=== PATIENT | male | born 1995 | race Caucasian/White ===

== ENCOUNTER 2020-06-03 09:56 | Inpatient (IN) | payer OTHER, SELFPAY ==
[2020-06-03] VITALS (19 sets, daily range): BP systolic 102–122; BP diastolic 59–79; PULSE 80–99; RESP 13–23; TEMP 36.2–37.1; O2SAT 97–100; BMI 18.4; BMI 18.6
--- NOTE | 2020-06-03 10:12 | EKG12_ITS ---
Test Reason : SOB Blood Pressure : / mmHG Vent. Rate : 095 BPM Atrial Rate : 095 BPM P-R Int : 162 ms QRS Dur : 092 ms QT Int : 366 ms P-R-T Axes : 078 075 050 degrees QTc Int : 459 ms Normal sinus rhythm Possible Left atrial enlargement Borderline ECG Confirmed by JELANI PAUL, TAMARA ([id number]), web content editor NICHOLE BECK ([id number]) on 06/05/2020 11:20:07 AM Referred By: ANASTASIA Confirmed By:TAMARA PALOMARES MD
--- NOTE | 2020-06-03 10:16 | ED.DCSUM_ITS ---
History of Present Illness Chief Complaint: Nausea/Vomiting Informant: Patient Onset: Yesterday Current Severity: Moderate Maximum Severity: Moderate Narrative: Patient presents secondary to nausea and vomiting with possible new onset diabetes. He has noted weight loss over the past 3 weeks. He developed nausea and vomiting yesterday. Patient was seen at the family doctor's office. Apparently blood work revealed a blood sugar of 400. He was not started on any medication pending some further blood tests. Patient presents today via EMS. Blood sugars today reportedly are in the 200s. Past Medical History - Allergies and Home Meds Allergies/Adverse Reactions: Allergies No Known Allergies Allergy (Verified 06/03/20 10:01) Past Medical History: None Lives: With Family Smoking Status: Never smoker Review of Systems General: Denies: Chills, Fever Eyes: Denies: Visual changes - bilaterally ENT: Denies: Bilateral ear pain Cardiovascular: Denies: Chest pain, Palpitations Respiratory: Denies: Dyspnea, Cough Gastrointestinal: Reports: Nausea, Vomiting. Denies: Abdominal pain, Diarrhea Genitourinary: Denies: Dysuria Musculoskeletal: Denies: Swelling, Extremity Pain Skin: Denies: Rash Hematologic: Denies: Easy bruising, Easy bleeding Allergy: Denies: Uticaria Physical Exam Vital Signs/Narrative: Vital Signs Temp Pulse Resp BP Pulse Ox 06/03/20 09:58 98 F 99 18 122/79 H 100 Inital Vital Signs reviewed: Yes General: Well nourished, Well developed Head: Normocephalic ENT: Dry mucous membranes Neck: Supple Cardiovascular: Tachycardia Respiratory: No distress, CTA bilaterally Abdomen: Soft, Nontender, Hypoactive bowel sounds Skin: Normal color Neurological: Alert, Oriented x3 Psychological: Normal affect Diagnostic/Tx/Re-eval Laboratory Results 06/03/20 06/03/20 06/03/20 10:40 10:40 11:20 WBC 11.6 H RBC 5.83 Hgb 17.8 H Hct 51.8 MCV 88.9 MCH 30.5 MCHC 34.4 RDW Std Deviation 35.8 RDW Coeff of Myah 11.3 L Plt Count 270 MPV 11.5 Immature Gran % (Auto) 0.600 Neut % (Auto) 86.3 H Lymph % (Auto) 4.9 L [place] % (Auto) 7.7 Eos % (Auto) 0.0 Baso % (Auto) 0.5 Absolute Neuts (auto) 10.0 H Absolute Lymphs (auto) 0.57 L Nucleated RBC % 0 Differential Comment SCANNED Sodium 128 L Potassium 4.6 Chloride 95 L Carbon Dioxide 7.0 L* Anion Gap 26 H BUN 18 Creatinine 1.63 H Estim Creat Clear Calc 61.50 Est GFR (MDRD) Af Amer 67 Est GFR (MDRD) Non-Af 56 L BUN/Creatinine Ratio 11.0 Glucose 360 H Calcium 8.1 L Magnesium 1.8 Total Bilirubin 0.60 Direct Bilirubin 0.15 AST 17 ALT 37 Alkaline Phosphatase 87 Total Protein 8.7 H Albumin 4.5 Globulin 4.2 Urine Color Yellow Urine Clarity Clear Urine pH 5.0 Ur Specific [place] 1.025 Urine Protein 100 H Urine Glucose (UA) 1000 H Urine Ketones 150 H Urine Occult Blood 50 H Urine Nitrite Negative Urine Bilirubin Negative Urine Urobilinogen Normal Ur Leukocyte Esterase Negative Urine RBC 0 SEEN Urine WBC 0 SEEN Ur Squamous Epith Cells 0 SEEN Urine Bacteria 0 SEEN Urine Mucus 0 SEEN - EKG Initial EKG Interpretation: Sinus Rhythm - Sinus at 95. QTc was 459. - Medical Decision Making Patient was given 2 L of IV fluid along with Reglan for nausea. Blood work does indicate acidosis with a bicarb of 7. Blood sugar is 360. Patient be started on normal saline at 500 cc/h along with an insulin drip. He will be admitted to ICU for DKA. ED Disposition - Plan for ED Patient: Disposition: Acute Care Hospital [facility] Diagnosis: DKA (diabetic ketoacidoses)
--- NOTE | 2020-06-03 10:16 | NURSING ---
NO OLD EKGS
[2020-06-03] MEDS: 0.9% Normal Saline 1,000 ML 1000 ML IV ×2 (10:33→11:14)
[2020-06-03] MEDS: Metoclopramide 10 MG/2 ML Vial 5 MG IV (10:33)
[2020-06-03 10:54] LABS: Absolute Lymphocyte Count 0.57 X10^3/uL (0.83-4.51); Basophil# 0.06 X10^3/uL; Basophil% 0.5 % (0-1); Hematocrit 51.8 % (40-54); Hemoglobin 17.8 g/dL (13.0-16.5); Lymphocyte # 0.57 X10^3/ul (4.0); Lymphocyte % 4.9 % (19-41); Mean Corp Hgb Conc 34.4 g/dL (32-36); Mean Corpuscular Hgb 30.5 pg (27.0-32.0); Mean Corpuscular Volume 88.9 fL (80-94); Mean Platelet Vol. 11.5 fl (6.2-12.0); Monocyte# 0.89 X10^3/uL; Monocyte% 7.7 % (0-10); NRBC Flagged by Analyzer 0 % (0-5); Neutrophil # 9.97 X10^3/uL (2.7-7.7); Neutrophil % 86.3 % (47-70); POSITIVE DIFFERENTIAL YES; Platelet Count 270 K/mm3 (150-450); RBC Distribution Width CV 11.3 % (11.6-14.6); RBC Distribution Width SD 35.8 fl (35.1-43.9); Red Blood Count 5.83 M/mm3 (4.6-6.2); White Blood Count 11.6 K/mm3 (4.4-11.0)
[2020-06-03 11:15] LABS: AST(SGOT) 17 U/L (15-37); Alanine Aminotransfer ALT/SGPT 37 U/L (16-61); Albumin, Serum 4.5 g/dL (3.2-5.0); Alkaline Phosphatase 87 U/L (45-117); Anion Gap 26 (5-15); BUN 18 mg/dL (7-18); Bilirubin, Direct 0.15 mg/dL (0.00-0.30); Calcium,Total 8.1 mg/dL (8.5-10.1); Chloride 95 mmol/L (98-107); Creatinine, Serum 1.63 mg/dL (0.70-1.30); EST Glomerular Filtration Rate 56 mL/min (>60); Est Glom Filt Rate - Afr Amer 67 mL/min (>60); Globulin 4.2 g/dL (2.2-4.2); Glucose 360 mg/dL (74-106); Magnesium 1.8 mg/dL (1.6-2.6); Potassium 4.6 mmol/L (3.5-5.1); Protein, Total 8.7 g/dL (6.4-8.2); Sodium Level 128 mmol/L (136-145)
[2020-06-03 11:17] LABS: Differential Indicated SCAN CRITERIA MET
[2020-06-03 11:22] LABS: Differential Comment SCANNED
[2020-06-03 11:25] LABS: Bacteria 0 SEEN /hpf (None Seen); Mucous, Urine 0 SEEN /hpf (<or=2+); Red Blood Cells-Urine 0 SEEN /hpf (0-5); Squamous Epithelial Cells - UA 0 SEEN /hpf (0-5); White Blood Cells 0 SEEN /hpf (0-5)
[2020-06-03 11:26] LABS: Color, Urine Yellow (Yellow); Glucose, Dipstick 1000 mg/dl (Normal); Leukocyte Esterase-Dipstick Negative /ul (Negative); Nitrite-Dipstick Negative (Negative); Occult Blood-Urine 50 /ul (Negative); Protein-Dipstick 100 mg/dl (Negative); Specific Gravity, Urine 1.025 (1.002-1.030); Urine Bilirubin Dipstick Negative (Negative); Urine Clarity Clear (Clear); Urine Urobilinogen Normal (Normal)
[2020-06-03 11:28] LABS: Ketone-Dipstick 150 mg/dl (Negative)
[2020-06-03] MEDS: 0.9% Normal Saline 1,000 ML 500 ML IV (12:05)
--- NOTE | 2020-06-03 12:20 | HP.PCM_ITS ---
Problem List (1) ZAYRA (acute kidney injury) Status: Acute (2) Hypomagnesemia Status: Acute (3) DKA (diabetic ketoacidoses) Status: Acute Qualifiers: Diabetes mellitus type: other specified (including JOEL) Diabetes mellitus complication detail: without coma Qualified Code(s): E13.10 - Other specified diabetes mellitus with ketoacidosis without coma History of Present Illness Date of Admission: 06/03/20 Chief Complaint: Weight loss, polydipsia,fatigue The patient is a 24 year old M no significant past medical history except for Lyme disease, on natural medications seen with a 1-1/2 weeks history of weight loss, fatigue, polydipsia and polyuria. Patient stated that he has lost about 15 pounds over the past 1 and half weeks. He has also been very thirsty. He went to see his primary care doctor yesterday and his blood sugar was 400. He was sent to do blood work. Was called to come to the emergency department. He denied any fever or chills or recent illness. No known past medical history. Vitals are stable. WBC count 11.6, hemoglobin 17.8,\272, sodium was 128, potass ium 4.6, chloride 95, bicarbonate 7, anion gap was 26, BUN was 18, creatinine was 1.6 today, HbA1c is 11.0, magnesium is 1.8, LFTs are unremarkable, UA shows glucose 1000, moderate acetone. Blood sugars with 360 Past Medical History Allergies No Known Allergies Allergy (Verified 06/03/20 10:01) Home Medications: Ambulatory Orders Medication Instructions Recorded NK 06/03/20 Surgical History: appendectomy Psychiatric History: No pertinent psych hx Lives: With Family Smoking Status: Never smoker Tobacco Use: Non-smoker Alcohol: None Drugs: None - *Family History Maternal History Items: No pertinent history Paternal History Items: Cancer - throat Review of Systems Comment: Constitutional: Reports: Malaise, Weakness, Fatigue, chills, weight loss Denies: Anorexia,Fever, Night Sweats. Eyes: Denies: Blurred vision, Cataracts, Conjunctivae Inflammation, Pain, Redness, Vision Change. HEENT: Denies: Difficulty Hearing, Difficulty Swallowing, Head Aches, Hearing Changes, Sinus Congestion, Sinus Drainage. Cardiovascular: Denies: Chest Pain, Orthopnea, Palpitations. Respiratory: Denies: Cough, Shortness of breath at rest, Sputum production. Gastrointestinal: Admits to nausea, Denies: Abdominal PainVomiting. Genitourinary: Admits to polyuria, Denies: Dysuria. Musculoskeletal: Denies: Joint Pain, Joint stiffness, Joint swelling, Joint Tenderness. Skin: Denies: Rash, Wounds. Neurological: Denies: Numbness, Tingling, Focal weakness VTE Information - Inpt Only VTE Present on Admission: No VTE Pharm Prophylaxis ordered?: Yes Patient Problems: Active and Suspected Problems DKA (diabetic ketoacidoses) (Acute) ZAYRA (acute kidney injury) (Acute) Hypomagnesemia (Acute) Objective: Physical exam: General: Alert, Oriented x3, Cooperative, No apparent distress, Well developed HEENT: Atraumatic Oral: Dry Mucosa Neck: Supple Lungs: Clear to auscultation Cardiovascular: HS I+II, regular, no murmurs Abdomen: Bowel Sounds Present, Soft, Non Tender Extremities: No edema Skin: No rashes, No breakdown Neurological: Grossly intact Psych/Mental Status: Appropriate - Physical Exam Vitals/I&O's: Vital Signs Temp Pulse Resp BP Pulse Ox 98 F 99 19 H 117/63 100 06/03/20 09:58 06/03/20 12:19 06/03/20 12:19 06/03/20 12:19 06/03/20 12:19 Oxygen Delivery Method Room Air Weight: 61.689 kg Body Mass Index (BMI) 18.4 Intake and Output for Last 24 Hours 06/01/20 06/02/20 06/03/20 23:59 23:59 23:59 Intake Total 1999 Balance 1999 Laboratory Results 06/03/20 10:40: WBC 11.6 H, RBC 5.83, Hgb 17.8 H, Hct 51.8, MCV 88.9, MCH 30.5, MCHC 34.4, RDW Std Deviation 35.8, RDW Coeff of Myah 11.3 L, Plt Count 270, MPV 11.5, Immature Gran % (Auto) 0.600, Neut % (Auto) 86.3 H, Lymph % (Auto) 4.9 L, [place] % (Auto) 7.7, Eos % (Auto) 0.0, Baso % (Auto) 0.5, Absolute Neuts (auto) 10.0 H, Absolute Lymphs (auto) 0.57 L, Nucleated RBC % 0, Differential Comment SCANNED 06/03/20 10:40: Sodium 128 L, Potassium 4.6, Chloride 95 L, Carbon Dioxide 7.0 L*, Anion Gap 26 H, BUN 18, Creatinine 1.63 H, Estim Creat Clear Calc 61.50, Est GFR (MDRD) Af Amer 67, Est GFR (MDRD) Non-Af 56 L, BUN/Creatinine Ratio 11.0, Glucose 360 H, Calcium 8.1 L, Magnesium 1.8, Total Bilirubin 0.60, Direct Bilirubin 0.15, AST 17, ALT 37, Alkaline Phosphatase 87, Total Protein 8.7 H, Albumin 4.5, Globulin 4.2 06/03/20 10:40: Hemoglobin A1c 11.0 H 06/03/20 10:40: Acetone Level MODERATE H 06/03/20 11:20: Urine Color Yellow, Urine Clarity Clear, Urine pH 5.0, Ur Specific [place] 1.025, Urine Protein 100 H, Urine Glucose (UA) 1000 H, Urine Ketones 150 H, Urine Occult Blood 50 H, Urine Nitrite Negative, Urine Bilirubin Negative, Urine Urobilinogen Normal, Ur Leukocyte Esterase Negative, Urine RBC 0 SEEN, Urine WBC 0 SEEN, Ur Squamous Epith Cells 0 SEEN, Urine Bacteria 0 SEEN, Urine Mucus 0 SEEN Current Medications Sodium Chloride () 1,000 mls @ 500 mls/hr IV .Q2H [facility] Stop: 06/03/20 13:44 Last Admin: 06/03/20 12:05 Dose: 500 mls/hr Documented by: Insulin Human Lispro 100 unit/ (Sodium Chloride) 100 mls @ 6.169 mls/hr CONT INF .[id number] [facility]; Protocol Last Admin: 06/03/20 12:14 Dose: 6.2 mls/hr, 6.2 mls/hr Documented by: Assessment/Plan All Active Problems DKA (diabetic ketoacidoses) (Acute) ZAYRA (acute kidney injury) (Acute) Hypomagnesemia (Acute) 1. Acute DKA, in a newly diagnosed diabetic HbA1c 11.0, patient is in acute DKA with severe metabolic acidosis Started on insulin drip, continue same, continue on acute DKA protocol 2. Acute kidney injury, prerenal secondary to #1 Million creatinine is 1.63, continue on IV fluids, repeat blood work in a.m. 3. Hypomagnesemia, Mg 1.8, replaced, recheck in a.m. 4. Severe acute malnutrition secondary to #1, Rn Labor Delivery consulted 5. DVT prophylaxis?low risk; early ambulation Inpatient E&M: [id number] Init Hosp L3
[2020-06-03 12:30] LABS: Bedside Glucose 331 mg/dL (70-110)
--- NOTE | 2020-06-03 12:39 | ED.RN ---
report given to mallika vance
[2020-06-03 13:30] LABS: Bedside Glucose 275 mg/dL (70-110)
[2020-06-03 14:11] LABS: Bedside Glucose 225 mg/dL (70-110)
[2020-06-03] MEDS: Dext 5%-0.45% NS 1,000 ML 150 ML IV ×2 (14:30→20:34)
[2020-06-03 14:43] LABS: Anion Gap 20 (5-15); BUN 16 mg/dL (7-18); BUN/Creat Ratio 11.8 RATIO (10-20); Calcium,Total 6.9 mg/dL (8.5-10.1); Chloride 108 mmol/L (98-107); Creatinine, Serum 1.36 mg/dL (0.70-1.30); EST Glomerular Filtration Rate 69 mL/min (>60); Est Glom Filt Rate - Afr Amer 83 mL/min (>60); Estimated Creatinine Clearance 74.32 ml/min; Glucose 221 mg/dL (74-106); Potassium 3.6 mmol/L (3.5-5.1); Sodium Level 136 mmol/L (136-145)
[2020-06-03 15:21] LABS: Bedside Glucose 224 mg/dL (70-110)
--- NOTE | 2020-06-03 15:31 | PCM.NTREPORT ---
Nutrition Therapy Report - History Nutrition Services has been consulted to:: Manage nutrient details of diet order Current diet / nutrition support order:: NPO - Anthropometric Measurements Height:: 6 ft Weight:: 62.2 kg Body Mass Index (BMI):: 18.6 - Relevant Labs Relevant Labs:: WBC 11.6 K/mm3 (4.4-11.0) H 06/03/20 10:40 Hgb 17.8 g/dL (13.0-16.5) H 06/03/20 10:40 RDW Coeff of Myah 11.3 % (11.6-14.6) L 06/03/20 10:40 Neut % (Auto) 86.3 % (47-70) H 06/03/20 10:40 Lymph % (Auto) 4.9 % (19-41) L 06/03/20 10:40 Absolute Neuts (auto) 10.0 X10^3/uL (2.0-7.7) H 06/03/20 10:40 Absolute Lymphs (auto) 0.57 X10^3/uL (0.83-4.51) L 06/03/20 10:40 Sodium 128 mmol/L (136-145) L 06/03/20 10:40 Chloride 108 mmol/L (98-107) H 06/03/20 14:00 Carbon Dioxide 8.0 mmol/L (21.0-32.0) L* 06/03/20 14:00 Anion Gap 20 (5-15) H 06/03/20 14:00 Creatinine 1.36 mg/dL (0.70-1.30) H 06/03/20 14:00 Est GFR (MDRD) Non-Af 56 mL/min (>60) L 06/03/20 10:40 Glucose 221 mg/dL (74-106) H 06/03/20 14:00 Hemoglobin A1c 11.0 % (3.8-5.6) H 06/03/20 10:40 Calcium 6.9 mg/dL (8.5-10.1) L 06/03/20 14:00 Total Protein 8.7 g/dL (6.4-8.2) H 06/03/20 10:40 - Assessment Food / Nutrition-Related History:: Pt reports decreased appetite/intake d/t nausea/emesis. States he tried to eat yesterday afternoon but couldn't keep food down. Feels UBW ~160# w/ unintentional wt loss x 3 weeks. - Nutrition Diagnosis Problem / Etiology / Signs & Symptoms (PES):: severe, acute malnutrition d/t GI dysfunction, hyperglycemia as evidenced by unintentional wt loss of 22.9#/14% x 3 weeks, estimated PO intake meeting <50% of pt's nutritional needs x 1 week. Evidence of Malnutrition Exists:: Yes Severe PCM:: Acute Illness - Nutrition Intervention Nutrition Prescription:: 9890-1372 calories/day (1.3xRMR). 60-75 g protein/day (1.0-1.2 g/kg). 2177mL fluid/day (35mL/kg) - Food / Nutrient Delivery Interventions Summary of nutrition intervention:: Will follow-up w/ pt tomorrow to provide education. - MNT Monitoring Further MNT monitoring and evaluation required?: Yes MNT Follow-up in:: 1-2 days
[2020-06-03] MEDS: Potassium Chloride 10mEq/100mL 10 MEQ/100 ML IV.SOLN. 100 MEQ IV BOLUS ×4 (15:45→19:36)
[2020-06-03 16:26] LABS: Bedside Glucose 226 mg/dL (70-110)
[2020-06-03 17:30] LABS: Bedside Glucose 243 mg/dL (70-110)
[2020-06-03 18:36] LABS: Bedside Glucose 266 mg/dL (70-110)
[2020-06-03 19:03] LABS: Anion Gap 12 (5-15); BUN 13 mg/dL (7-18); BUN/Creat Ratio 10.1 RATIO (10-20); Calcium,Total 7.3 mg/dL (8.5-10.1); Chloride 108 mmol/L (98-107); Creatinine, Serum 1.29 mg/dL (0.70-1.30); EST Glomerular Filtration Rate 73 mL/min (>60); Est Glom Filt Rate - Afr Amer 88 mL/min (>60); Estimated Creatinine Clearance 78.35 ml/min; Glucose 255 mg/dL (74-106); Potassium 4.2 mmol/L (3.5-5.1); Sodium Level 134 mmol/L (136-145)
[2020-06-03 19:46] LABS: Bedside Glucose 243 mg/dL (70-110)
[2020-06-03 20:41] LABS: Bedside Glucose 219 mg/dL (70-110)
[2020-06-03 22:30] LABS: Bedside Glucose 185 mg/dL (70-110)
[2020-06-03 22:50] LABS: Anion Gap 7 (5-15); BUN 12 mg/dL (7-18); BUN/Creat Ratio 9.5 RATIO (10-20); Calcium,Total 7.6 mg/dL (8.5-10.1); Chloride 111 mmol/L (98-107); Creatinine, Serum 1.26 mg/dL (0.70-1.30); EST Glomerular Filtration Rate 75 mL/min (>60); Est Glom Filt Rate - Afr Amer 91 mL/min (>60); Estimated Creatinine Clearance 80.22 ml/min; Glucose 216 mg/dL (74-106); Potassium 3.5 mmol/L (3.5-5.1); Sodium Level 136 mmol/L (136-145)
[2020-06-04] VITALS (17 sets, daily range): BP systolic 97–111; BP diastolic 56–86; PULSE 67–96; RESP 13–19; TEMP 36.6–37.1; O2SAT 95–100
[2020-06-04] MEDS: 0.9% Saline Lock 10 ML Syringe IV ×4 (00:39→08:01)
[2020-06-04 00:46] LABS: Bedside Glucose 193 mg/dL (70-110)
[2020-06-04 01:36] LABS: Bedside Glucose 169 mg/dL (70-110)
[2020-06-04 02:41] LABS: Bedside Glucose 154 mg/dL (70-110)
[2020-06-04 02:56] LABS: Anion Gap 5 (5-15); BUN 11 mg/dL (7-18); BUN/Creat Ratio 9.6 RATIO (10-20); Calcium,Total 7.8 mg/dL (8.5-10.1); Chloride 111 mmol/L (98-107); Creatinine, Serum 1.15 mg/dL (0.70-1.30); EST Glomerular Filtration Rate 83 mL/min (>60); Est Glom Filt Rate - Afr Amer 101 mL/min (>60); Estimated Creatinine Clearance 87.89 ml/min; Glucose 143 mg/dL (74-106); Potassium 2.9 mmol/L (3.5-5.1); Sodium Level 137 mmol/L (136-145)
[2020-06-04] MEDS: Dext 5%-0.45% NS 1,000 ML 150 ML IV (03:15)
[2020-06-04 05:12] LABS: Absolute Neutrophil Count 4.4 X10^3/uL (2.0-7.7); Basophil# 0.03 X10^3/uL; Basophil% 0.4 % (0-1); Eosinophil# 0.07 X10^3/uL; Hematocrit 40.5 % (40-54); Hemoglobin 14.5 g/dL (13.0-16.5); Lymphocyte % 19.4 % (19-41); Mean Corp Hgb Conc 35.8 g/dL (32-36); Mean Corpuscular Hgb 30.7 pg (27.0-32.0); Mean Corpuscular Volume 85.6 fL (80-94); Mean Platelet Vol. 10.8 fl (6.2-12.0); Monocyte# 0.89 X10^3/uL; Monocyte% 13.3 % (0-10); NRBC Flagged by Analyzer 0 % (0-5); Neutrophil % 65.6 % (47-70); Platelet Count 212 K/mm3 (150-450); RBC Distribution Width CV 11.4 % (11.6-14.6); RBC Distribution Width SD 35.1 fl (35.1-43.9); Red Blood Count 4.73 M/mm3 (4.6-6.2); White Blood Count 6.7 K/mm3 (4.4-11.0)
[2020-06-04 05:29] LABS: ALB/GLOB Ratio 1.1 RATIO (0.9-2.4); AST(SGOT) 14 U/L (15-37); Alanine Aminotransfer ALT/SGPT 23 U/L (16-61); Albumin, Serum 3.4 g/dL (3.2-5.0); Alkaline Phosphatase 54 U/L (45-117); Anion Gap 5 (5-15); BUN 11 mg/dL (7-18); BUN/Creat Ratio 9.8 RATIO (10-20); Calcium,Total 7.9 mg/dL (8.5-10.1); Chloride 109 mmol/L (98-107); Creatinine, Serum 1.12 mg/dL (0.70-1.30); EST Glomerular Filtration Rate 86 mL/min (>60); Est Glom Filt Rate - Afr Amer 104 mL/min (>60); Estimated Creatinine Clearance 90.25 ml/min; Glucose 84 mg/dL (74-106); Potassium 2.8 mmol/L (3.5-5.1); Protein, Total 6.4 g/dL (6.4-8.2); Sodium Level 136 mmol/L (136-145)
[2020-06-04 05:51] LABS: Bedside Glucose 98 mg/dL (70-110)
[2020-06-04 05:51] LABS: Bedside Glucose 129 mg/dL (70-110)
--- NOTE | 2020-06-04 07:10 | PCM.PN.HOSP ---
Patient Problems: Active and Suspected Problems DKA (diabetic ketoacidoses) (Acute) ZAYRA (acute kidney injury) (Acute) Hypomagnesemia (Acute) Reason for Visit: Follow-up on Acute DKA/newly diagnosed DM Subjective: Patient was seen and examined. He denied any new complains. His anion gap is closed. Objective: Physical exam: General: Alert, Oriented x3, Cooperative, No apparent distress, Well developed HEENT: Atraumatic Oral: Dry Mucosa Neck: Supple Lungs: Clear to auscultation Cardiovascular: HS I+II, regular, no murmurs Abdomen: Bowel Sounds Present, Soft, Non Tender Extremities: No edema Skin: No rashes, No breakdown Neurological: Grossly intact Psych/Mental Status: Appropriate Vitals/I&O's: Vital Signs Temp Pulse Resp BP Pulse Ox 98.0 F 93 14 111/86 H 100 06/04/20 04:00 06/04/20 05:00 06/04/20 05:00 06/04/20 05:00 06/04/20 05:00 Oxygen Delivery Method Room Air Weight: 60.4 kg Body Mass Index (BMI) 18.6 Finger Stick Blood Glucose 154 Intake and Output for Last 24 Hours 06/02/20 06/03/20 06/04/20 23:59 23:59 23:59 Intake Total 4487.41 / 4487.41 1821.55 / 1821.55 Output Total 850 / 850 700 / 700 Balance 3637.41 / 3637.41 1121.55 / 1121.55 Laboratory Results 06/03/20 10:40: WBC 11.6 H, RBC 5.83, Hgb 17.8 H, Hct 51.8, MCV 88.9, MCH 30.5, MCHC 34.4, RDW Std Deviation 35.8, RDW Coeff of Myah 11.3 L, Plt Count 270, MPV 11.5, Immature Gran % (Auto) 0.600, Neut % (Auto) 86.3 H, Lymph % (Auto) 4.9 L, [place] % (Auto) 7.7, Eos % (Auto) 0.0, Baso % (Auto) 0.5, Absolute Neuts (auto) 10.0 H, Absolute Lymphs (auto) 0.57 L, Nucleated RBC % 0, Differential Comment SCANNED 06/03/20 10:40: Sodium 128 L, Potassium 4.6, Chloride 95 L, Carbon Dioxide 7.0 L*, Anion Gap 26 H, BUN 18, Creatinine 1.63 H, Estim Creat Clear Calc 61.50, Est GFR (MDRD) Af Amer 67, Est GFR (MDRD) Non-Af 56 L, BUN/Creatinine Ratio 11.0, Glucose 360 H, Calcium 8.1 L, Magnesium 1.8, Total Bilirubin 0.60, Direct Bilirubin 0.15, AST 17, ALT 37, Alkaline Phosphatase 87, Total Protein 8.7 H, Albumin 4.5, Globulin 4.2 06/03/20 10:40: Hemoglobin A1c 11.0 H 06/03/20 10:40: Acetone Level MODERATE H 06/03/20 11:20: Urine Color Yellow, Urine Clarity Clear, Urine pH 5.0, Ur Specific [place] 1.025, Urine Protein 100 H, Urine Glucose (UA) 1000 H, Urine Ketones 150 H, Urine Occult Blood 50 H, Urine Nitrite Negative, Urine Bilirubin Negative, Urine Urobilinogen Normal, Ur Leukocyte Esterase Negative, Urine RBC 0 SEEN, Urine WBC 0 SEEN, Ur Squamous Epith Cells 0 SEEN, Urine Bacteria 0 SEEN, Urine Mucus 0 SEEN 06/03/20 12:23: POC Glucose 331 H 06/03/20 13:05: POC Glucose 275 H 06/03/20 14:00: Sodium 136, Potassium 3.6, Chloride 108 H, Carbon Dioxide 8.0 L*, Anion Gap 20 H, BUN 16, Creatinine 1.36 H, Estim Creat Clear Calc 74.32, Est GFR (MDRD) Af Amer 83, Est GFR (MDRD) Non-Af 69, BUN/Creatinine Ratio 11.8, Glucose 221 H, Calcium 6.9 L 06/03/20 14:03: POC Glucose 225 H 06/03/20 15:14: POC Glucose 224 H 06/03/20 16:21: POC Glucose 226 H 06/03/20 17:24: POC Glucose 243 H 06/03/20 18:05: Sodium 134 L, Potassium 4.2, Chloride 108 H, Carbon Dioxide 14.0 L, Anion Gap 12, BUN 13, Creatinine 1.29, Estim Creat Clear Calc 78.35, Est GFR (MDRD) Af Amer 88, Est GFR (MDRD) Non-Af 73, BUN/Creatinine Ratio 10.1, Glucose 255 H, Calcium 7.3 L 06/03/20 18:30: POC Glucose 266 H 06/03/20 19:33: POC Glucose 243 H 06/03/20 20:32: POC Glucose 219 H 06/03/20 22:20: Sodium 136, Potassium 3.5, Chloride 111 H, Carbon Dioxide 18.0 L, Anion Gap 7, BUN 12, Creatinine 1.26, Estim Creat Clear Calc 80.22, Est GFR (MDRD) Af Amer 91, Est GFR (MDRD) Non-Af 75, BUN/Creatinine Ratio 9.5 L, Glucose 216 H, Calcium 7.6 L 06/03/20 22:23: POC Glucose 185 H 06/04/20 00:34: POC Glucose 193 H 06/04/20 01:27: POC Glucose 169 H 06/04/20 02:31: POC Glucose 154 H 06/04/20 02:33: Sodium 137, Potassium 2.9 L, Chloride 111 H, Carbon Dioxide 21.0, Anion Gap 5, BUN 11, Creatinine 1.15, Estim Creat Clear Calc 87.89, Est GFR (MDRD) Af Amer 101, Est GFR (MDRD) Non-Af 83, BUN/Creatinine Ratio 9.6 L, Glucose 143 H, Calcium 7.8 L 06/04/20 04:35: POC Glucose 98 06/04/20 05:00: Sodium 136, Potassium 2.8 L, Chloride 109 H, Carbon Dioxide 22.0, Anion Gap 5, BUN 11, Creatinine 1.12, Estim Creat Clear Calc 90.25, Est GFR (MDRD) Af Amer 104, Est GFR (MDRD) Non-Af 86, BUN/Creatinine Ratio 9.8 L, Glucose 84, Calcium 7.9 L, Total Bilirubin 0.50, AST 14 L, ALT 23, Alkaline Phosphatase 54, Total Protein 6.4, Albumin 3.4, Globulin 3.0, Albumin/Globulin Ratio 1.1 06/04/20 05:00: WBC 6.7, RBC 4.73, Hgb 14.5, Hct 40.5, MCV 85.6, MCH 30.7, MCHC 35.8, RDW Std Deviation 35.1, RDW Coeff of [place]ah 11.4 L, Plt Count 212, MPV 10.8, Immature Gran % (Auto) 0.300, Neut % (Auto) 65.6, Lymph % (Auto) 19.4, [place] % (Auto) 13.3 H, Eos % (Auto) 1.0, Baso % (Auto) 0.4, Absolute Neuts (auto) 4.4, Absolute Lymphs (auto) 1.30, Nucleated RBC % 0 06/04/20 05:44: POC Glucose 129 H Current Medications Acetaminophen (Acetaminophen 325 Mg Tablet) 650 mg PO Q6H PRN PRN PRN Reason: Pain Score 1-10/Temp > 100.7 F Dextrose (Dextrose 50%-Water 25 Gm/50 Ml Disp.Syrin) 0 gm IV X1 PRN; Protocol PRN Reason: HYPOGLYCEMIA Dextrose (Dextrose 50%-Water 25 Gm/50 Ml Disp.Syrin) 0 gm IV X1 PRN; Protocol PRN Reason: Hypoglycemia Glucagon (Glucagon 1 Mg/Ml Syringe) 1 mg IM .X1 PRN PRN Reason: Hypoglycemia Sodium Chloride () 250 mls @ 15 mls/hr IV .[id number] PRN PRN Reason: Saline Flush Last Infusion: 06/03/20 13:51 Dose: 0 mls/hr Documented by: Sodium Chloride () 250 mls @ 15 mls/hr IV .[id number] PRN PRN Reason: Additional IVPB Infusion Dextrose/Sodium Chloride () 1,000 mls @ 150 mls/hr IV .[id number] LEONILA Last Infusion: 06/04/20 07:03 Dose: Infused Documented by: Potassium Chloride () 10 meq in 100 mls @ 100 mls/hr IV BOLUS Q1H LEONILA Stop: 06/04/20 11:14 Insulin Glargine (Insulin Glargine 100 Units/Ml Pen) 20 units SC DAILY LEONILA Last Admin: 06/04/20 05:46 Dose: 20 units Documented by: Insulin Glargine (Insulin Glargine 100 Units/Ml Pen) 6 units SC BREAKFAST LEONILA Insulin Glargine (Insulin Glargine 100 Units/Ml Pen) 6 units SC DINNER LEONILA Insulin Glargine (Insulin Glargine 100 Units/Ml Pen) 6 units SC QHS LEONILA Insulin Human Lispro (Insulin Lispro 100 Unit/Ml Insuln.Pen) 0 unit SC ACHS [facility]; Protocol Ondansetron HCl (Ondansetron 4 Mg/2 Ml Vial) 4 mg IV Q8H PRN PRN PRN Reason: NAUSEA/VOMITING Potassium Chloride (Potassium Chloride Oral Tablet 20 Meq) 60 meq PO X1 ONE Stop: 06/04/20 07:10 Sodium Chloride (0.9% Saline Lock 10 Ml Syringe) 10 - 40 ml IV UD PRN PRN Reason: SALINE FLUSH Last Admin: 06/04/20 04:55 Dose: 10 ml Documented by: STROKE Vital Signs/Narrative: Vital Signs Temp Pulse Resp BP Pulse Ox 06/04/20 05:00 93 14 111/86 H 100 06/04/20 04:00 98.0 F 70 16 102/60 100 Medical Necessity - Tobacco Use Smoking Status: Never smoker Tobacco Use: Non-smoker Assessment/Plan All Active Problems DKA (diabetic ketoacidoses) (Acute) ZAYRA (acute kidney injury) (Acute) Hypomagnesemia (Acute) 1. Acute DKA, in a newly diagnosed diabetic, HbA1c 11.0, Acute DKA is now resolved Started on Lantus and Lispro premeal, continue on ACHS Patient will need to follow-up with endocrinology in the outpatient 2. Hypokalemia, K 2.8, replace, recheck in 4 hours Recheck also in am 3. Acute kidney injury, prerenal secondary to #1, improving Admitting creatinine is 1.63, Cr now is 1.12 Continue on IV fluids, repeat blood work in a.m. 4. Hypomagnesemia, resolved 5. Severe acute malnutrition secondary to #1, Print Color Operator consulted 6. DVT prophylaxis?low risk; early ambulation Inpatient E&M: [id number] [facility] L3
[2020-06-04 07:48] LABS: Magnesium 2.1 mg/dL (1.6-2.6)
[2020-06-04] MEDS: Potassium Chloride Oral Tablet 20 MEQ 60 MEQ PO (07:55)
[2020-06-04] MEDS: Potassium Chloride 10mEq/100mL 10 MEQ/100 ML IV.SOLN. 100 MEQ IV BOLUS ×4 (08:01→11:15)
[2020-06-04] MEDS: Glucerna Shake 120 ML LIQUID PO ×2 (08:09→11:15)
[2020-06-04] MEDS: Insulin Lispro 100 UNIT/ML INSULN.PEN 6 UNIT SC ×3 (08:12→17:13)
[2020-06-04 08:20] LABS: Bedside Glucose 143 mg/dL (70-110)
--- NOTE | 2020-06-04 11:00 | CASEMGMT ---
RN KYLAH Face to Face with patient for initial transition planning/care coordination assessment. RN CM introduced self and role at [facility]. Patient lying in bed, alert and oriented. Patient willing to participate in assessment and is able to answer all questions appropriately. Care providers, pharmacy, and demographics verified. Patient wishes to discharge home, denies need for home health at this time. Patient states he has no further needs or concerns at this time. CM to follow for discharge planning needs that may arise. PCP: [facility] Specialists: none Preferred Pharmacy: [facility] Insurance: [facility] Prescription Benefit: none Living Will/HPOA: none LNOK: parents Living Arrangements: Patient lives with family in a multi story home. Patient is independent and able to ambulate stairs. Transportation: self/sister DME/HHC: Patient denies DME or previous HHC. Will monitor for need for glucometer at discharge. Disposition Plan: Patient to discharge home with family support and follow-up plans in place. [place] FRANZ, RN, CM
[2020-06-04] MEDS: Insulin Lispro 100 UNIT/ML INSULN.PEN SC ×3 (12:20→21:31)
[2020-06-04] MEDS: 0.9% Normal Saline 1,000 ML 75 ML IV (12:21)
[2020-06-04 12:31] LABS: Bedside Glucose 237 mg/dL (70-110)
[2020-06-04 13:41] LABS: Anion Gap 5 (5-15); BUN 11 mg/dL (7-18); Calcium,Total 8.1 mg/dL (8.5-10.1); Chloride 108 mmol/L (98-107); EST Glomerular Filtration Rate 88 mL/min (>60); Est Glom Filt Rate - Afr Amer 106 mL/min (>60); Estimated Creatinine Clearance 89.23 ml/min; Glucose 237 mg/dL (74-106); Potassium 3.4 mmol/L (3.5-5.1); Sodium Level 137 mmol/L (136-145)
[2020-06-04 17:10] LABS: Bedside Glucose 293 mg/dL (70-110)
[2020-06-04 21:40] LABS: Bedside Glucose 184 mg/dL (70-110)
[2020-06-05 00:13] VITALS: BP 108/65; PULSE 76; RESP 16; TEMP 36.8; O2SAT 99
[2020-06-05] MEDS: 0.9% Normal Saline 1,000 ML 75 ML IV (02:02)
[2020-06-05 04:06] VITALS: PULSE 60
[2020-06-05 06:13] VITALS: BP 105/67; PULSE 61; RESP 16; TEMP 36.5; O2SAT 100
[2020-06-05 06:28] LABS: Absolute Lymphocyte Count 1.85 X10^3/uL (0.83-4.51); Absolute Neutrophil Count 2.1 X10^3/uL (2.0-7.7); Basophil# 0.03 X10^3/uL; Basophil% 0.6 % (0-1); Eosinophil# 0.14 X10^3/uL; Hematocrit 39.4 % (40-54); Hemoglobin 13.7 g/dL (13.0-16.5); Lymphocyte # 1.85 X10^3/ul (0.83-4.51); Lymphocyte % 39.9 % (19-41); Mean Corp Hgb Conc 34.8 g/dL (32-36); Mean Corpuscular Hgb 29.7 pg (27.0-32.0); Mean Corpuscular Volume 85.5 fL (80-94); Mean Platelet Vol. 11.3 fl (6.2-12.0); Monocyte# 0.49 X10^3/uL; Monocyte% 10.6 % (0-10); NRBC Flagged by Analyzer 0 % (0-5); Neutrophil # 2.12 X10^3/uL (2.7-7.7); Neutrophil % 45.7 % (47-70); Platelet Count 168 K/mm3 (150-450); RBC Distribution Width CV 11.8 % (11.6-14.6); RBC Distribution Width SD 36.6 fl (35.1-43.9); Red Blood Count 4.61 M/mm3 (4.6-6.2); White Blood Count 4.6 K/mm3 (4.4-11.0)
[2020-06-05 06:35] VITALS: PULSE 60
[2020-06-05 06:55] LABS: Bedside Glucose 209 mg/dL (70-110)
[2020-06-05 06:56] LABS: ALB/GLOB Ratio 1.1 RATIO (0.9-2.4); AST(SGOT) 14 U/L (15-37); Alanine Aminotransfer ALT/SGPT 23 U/L (16-61); Alkaline Phosphatase 59 U/L (45-117); Anion Gap 2 (5-15); BUN 10 mg/dL (7-18); BUN/Creat Ratio 12.7 RATIO (10-20); Calcium,Total 8.1 mg/dL (8.5-10.1); Chloride 105 mmol/L (98-107); Creatinine, Serum 0.78 mg/dL (0.70-1.30); EST Glomerular Filtration Rate 129 mL/min (>60); Est Glom Filt Rate - Afr Amer 157 mL/min (>60); Estimated Creatinine Clearance 124.79 ml/min; Globulin 2.8 g/dL (2.2-4.2); Glucose 246 mg/dL (74-106); Potassium 3.6 mmol/L (3.5-5.1); Protein, Total 5.8 g/dL (6.4-8.2); Sodium Level 136 mmol/L (136-145)
[2020-06-05] MEDS: Insulin Lispro 100 UNIT/ML INSULN.PEN 6 UNIT SC ×2 (07:44→11:46)
[2020-06-05] MEDS: Insulin Lispro 100 UNIT/ML INSULN.PEN SC ×2 (07:45→11:47)
[2020-06-05] MEDS: Glucerna Shake 120 ML LIQUID PO (07:47)
--- NOTE | 2020-06-05 09:06 | DCINST_ITS ---
- Discharge Diagnoses Current Active Problems: Current Active and Chronic Problems DKA (diabetic ketoacidoses) (Acute) ZAYRA (acute kidney injury) (Acute) Hypomagnesemia (Acute) Reason(s) for Visit for Discharge Instructions: Acute DKA You will use the following diet at home:: Calorie/Carbohydrate Controlled (specify 1200, 1400, etc) - 5197-1375 Your food should be the consistency of: Regular Your liquids should be the consistency of: Regular/Thin Discharge Activity: Return to Normal Activity Additional Instructions: Continue to take all your insulins as prescribed. Continue to monitor your blood sugars before meals. Follow-up on the low calorie diet as given in the nutrition education. Follow-up with the photograph mounter in 1 week with a log of your blood sugars. Allergies/Adverse Reactions: Allergies No Known Allergies Allergy (Verified 06/03/20 10:01) Medications to take at Discharge Glucerna Shake 120 ml PO TIDCM 30 Days #90 liquid 06/05/20 Insulin Glargine [Lantus SoloStar Pen] 20 units SC DAILY #1 pen 06/05/20 Insulin Lispro [Humalog KwikPen] 6 unit SC TIDAC #1 insuln.pen 06/05/20 Insulin Lispro [Humalog KwikPen] See Protocol SC ACHS #0 insuln.pen 06/05/20 The following prescriptions were given: Glucerna Shake 120 ml PO TIDCM 30 Days #90 liquid Transmission Status: Received by [id number] Insulin Lispro [Humalog KwikPen] 6 unit SC TIDAC #1 insuln.pen Transmission Status: Received by [id number] Insulin Glargine [Lantus SoloStar Pen] 20 units SC DAILY #1 pen Transmission Status: Received by [id number] Orders to be completed after discharge: Glucometer Location: None Selected Primary Care Physician: Nicolette HOOVER [Other] Please follow up with your Primary Care Physician in: within 2 weeks Test Results: Test results from this visit will be discussed in further detail at your follow- up appointment, if applicable. Please Follow Up With: Cruz Meyers MD When: in 1 week Proposed Discharge Date: 06/05/20
[2020-06-05 10:02] VITALS: BP 114/65; PULSE 70; RESP 16; TEMP 36.4; O2SAT 100
--- NOTE | 2020-06-05 10:11 | DS.PCM_ITS ---
Discharge Date and Diagnosis - Problem List Patient Problems: Active and Suspected Problems DKA (diabetic ketoacidoses) (Acute) ZAYRA (acute kidney injury) (Acute) Hypomagnesemia (Acute) Date of Admission: 06/03/20 Date of Discharge: 06/05/20 - Primary Discharge Diagnosis Acute Problems: Active Problems Acute DKA Newly diagnosed DM, unclear what type Hypokalemia Hypomagnesemia Severe acute malnutrition Acute kidney injury Hospital Course and Treatment Operations: None Procedures: None Summary of Care Provided: The patient is a 24 year old M with no significant past medical history except for Lyme disease, on natural medications seen with a 1-1/2 weeks history of weight loss, fatigue, polydipsia and polyuria. Patient stated that he has lost about 15 pounds over the past 1 and half weeks. He has also been very thirsty. He went to see his primary care doctor day prior to presentation and his blood sugar was 400. He was sent to do blood work. He was then called to come to the emergency department. His work-up was remarkable for acute DKA. His blood sugar was 360. HbA1c was 11.0. Patient was initially admitted to ICU and managed on insulin drip. He had electrolyte imbalances that were replaced. Patient was transitioned to long-acting insulin. He was transferred out of the ICU and continue to monitor on the progressive care unit. Patient continued to improve and received lots of education from nurses, pharmacy and dietitian. He will follow up with Dr. Chandra Meyers in 2 weeks. Patient Problems: Active and Suspected Problems DKA (diabetic ketoacidoses) (Acute) ZAYRA (acute kidney injury) (Acute) Hypomagnesemia (Acute) Subjective: On the day of discharge, patient was seen and examined. Denied any new complaints. He was more comfortable with giving himself insulin and checking his blood sugars. His mother was at the bedside. All questions were answered. Objective: Physical exam: General: Alert, Oriented x3, Cooperative, No apparent distress, Well developed HEENT: Atraumatic Oral: Dry Mucosa Neck: Supple Lungs: Clear to auscultation Cardiovascular: HS I+II, regular, no murmurs Abdomen: Bowel Sounds Present, Soft, Non Tender Extremities: No edema Skin: No rashes, No breakdown Neurological: Grossly intact Psych/Mental Status: Appropriate - Physical Exam Vitals/I&O's: Vital Signs Temp Pulse Resp BP Pulse Ox 97.5 F L 70 16 114/65 100 06/05/20 10:02 06/05/20 10:02 06/05/20 10:02 06/05/20 10:02 06/05/20 10:02 Oxygen Delivery Method Room Air Weight: 59.9 kg Body Mass Index (BMI) 18.6 Finger Stick Blood Glucose 154 Intake and Output for Last 24 Hours 06/03/20 06/04/20 06/05/20 23:59 23:59 23:59 Intake Total 4487.41 / 4487.41 3419.05 / 3419.05 1600 / 1600 Output Total 850 / 850 1750 / 1750 Balance 3637.41 / 3637.41 1669.05 / 1669.05 1600 / 1600 Laboratory Results 06/04/20 12:18: POC Glucose 237 H 06/04/20 13:10: Sodium 137, Potassium 3.4 L, Chloride 108 H, Carbon Dioxide 24.0, Anion Gap 5, BUN 11, Creatinine 1.10, Estim Creat Clear Calc 89.23, Est GFR (MDRD) Af Amer 106, Est GFR (MDRD) Non-Af 88, BUN/Creatinine Ratio 10.0, Glucose 237 H, Calcium 8.1 L 06/04/20 17:02: POC Glucose 293 H 06/04/20 21:30: POC Glucose 184 H 06/05/20 05:50: WBC 4.6, RBC 4.61, Hgb 13.7, Hct 39.4 L, MCV 85.5, MCH 29.7, MCHC 34.8, RDW Std Deviation 36.6, RDW Coeff of Myah 11.8, Plt Count 168, MPV 11.3, Immature Gran % (Auto) 0.200, Neut % (Auto) 45.7 L, Lymph % (Auto) 39.9, Dougherty % (Auto) 10.6 H, Eos % (Auto) 3.0, Baso % (Auto) 0.6, Absolute Neuts (auto) 2.1, Absolute Lymphs (auto) 1.85, Nucleated RBC % 0 06/05/20 05:50: Sodium 136, Potassium 3.6, Chloride 105, Carbon Dioxide 29.0, Anion Gap 2 L, BUN 10, Creatinine 0.78, Estim Creat Clear Calc 124.79, Est GFR (MDRD) Af Amer 157, Est GFR (MDRD) Non-Af 129, BUN/Creatinine Ratio 12.7, Glucose 246 H, Calcium 8.1 L, Total Bilirubin 0.60, AST 14 L, ALT 23, Alkaline Phosphatase 59, Total Protein 5.8 L, Albumin 3.0 L, Globulin 2.8, Albumin/Globulin Ratio 1.1 06/05/20 06:33: POC Glucose 209 H Current Medications Acetaminophen (Acetaminophen 325 Mg Tablet) 650 mg PO Q6H PRN PRN PRN Reason: Pain Score 1-10/Temp > 100.7 F Dextrose (Dextrose 50%-Water 25 Gm/50 Ml Disp.Syrin) 0 gm IV X1 PRN; Protocol PRN Reason: HYPOGLYCEMIA Dextrose (Dextrose 50%-Water 25 Gm/50 Ml Disp.Syrin) 0 gm IV X1 PRN; Protocol PRN Reason: Hypoglycemia Glucagon (Glucagon 1 Mg/Ml Syringe) 1 mg IM .X1 PRN PRN Reason: Hypoglycemia Sodium Chloride () 250 mls @ 15 mls/hr IV .[id number] PRN PRN Reason: Saline Flush Last Infusion: 06/04/20 12:23 Dose: Infused Documented by: Sodium Chloride () 250 mls @ 15 mls/hr IV .[id number] PRN PRN Reason: Additional IVPB Infusion Last Infusion: 06/04/20 12:23 Dose: Infused Documented by: Sodium Chloride () 1,000 mls @ 75 mls/hr IV .[id number] LEONILA Last Admin: 06/05/20 02:02 Dose: 75 mls/hr Documented by: Insulin Glargine (Insulin Glargine 100 Units/Ml Pen) 20 units SC DAILY [facility] Last Admin: 06/05/20 08:31 Dose: 20 units Documented by: Insulin Human Lispro (Insulin Lispro 100 Unit/Ml Insuln.Pen) 0 unit SC ACHS [facility]; Protocol Last Admin: 06/05/20 07:45 Dose: 2 u Documented by: Insulin Human Lispro (Insulin Lispro 100 Unit/Ml Insuln.Pen) 6 unit SC TIDAC [facility] Last Admin: 06/05/20 07:44 Dose: 6 u Documented by: Nutritional Formula (Lactose Free) (Glucerna Shake 120 Ml Liquid) 120 ml PO TIDCM [facility] Last Admin: 06/05/20 07:47 Dose: 120 ml Documented by: Ondansetron HCl (Ondansetron 4 Mg/2 Ml Vial) 4 mg IV Q8H PRN PRN PRN Reason: NAUSEA/VOMITING Sodium Chloride (0.9% Saline Lock 10 Ml Syringe) 10 - 40 ml IV UD PRN PRN Reason: SALINE FLUSH Last Admin: 06/04/20 08:01 Dose: 20 ml Documented by: Discharge Diet: Carb Control Diet Discharge Activity: Return to Normal Activity Home Medications: Medications to take at Discharge Glucerna Shake 120 ml PO TIDCM 30 Days #90 liquid 06/05/20 Insulin Glargine [Lantus SoloStar Pen] 20 units SC DAILY #1 pen 06/05/20 Insulin Lispro [Humalog KwikPen] 6 unit SC TIDAC #1 insuln.pen 06/05/20 Insulin Lispro [Humalog KwikPen] See Protocol SC ACHS #0 insuln.pen 06/05/20 [place], Insulin Disposable [Novofine Autocover 30G Needle] 1 each MISCELL. UD #1 box 06/05/20 Following Prescriptions Were Given to Patient: Glucerna Shake 120 ml PO TIDCM 30 Days #90 liquid Transmission Status: Received by [id number] Insulin Lispro [Humalog KwikPen] 6 unit SC TIDAC #1 insuln.pen Transmission Status: Received by [id number] Insulin Glargine [Lantus SoloStar Pen] 20 units SC DAILY #1 pen Transmission Status: Received by [id number] [place], Insulin Disposable [Novofine Autocover 30G Needle] 1 each MISCELL. UD #1 box Transmission Status: Received by [id number] Other Amb Orders: Glucometer Location: None Selected Primary Care Physician: Nicolette HOOVER [Other] Please follow up with your Primary Care Physician in: within 2 weeks Please Follow Up With: Cruz Meyers MD When: in 1 week Disposition: Home Minutes spent on discharge:: 45 Patient Condition:: Stable Medical Necessity - Tobacco Use Smoking Status: Never smoker Tobacco Use: Non-smoker Meaningful Use Info Meaningful Use Diagnoses (Choose all that apply): None applicable Inpatient E&M: [id number] Disch Hosp
[2020-06-05 11:01] LABS: Bedside Glucose 298 mg/dL (70-110)
--- NOTE | 2020-06-05 11:46 | PHA.DC.MC ---
Pharmacy Service has performed discharge medication reconciliation and counseling for this patient. 1. INSULIN GLARGINE 20UNITS SC DAILY 2. INSULIN LISPRO 6UNITS SC TIDCM AND ACHS The patient's discharge medication list was reviewed for discrepancies and discrepancies were resolved. Home Medications Glucerna Shake 120 ml PO TIDCM 30 Days #90 liquid 06/05/20 Insulin Glargine [Lantus SoloStar Pen] 20 units SC DAILY #1 pen 06/05/20 Insulin Lispro [Humalog KwikPen] 6 unit SC TIDAC #1 insuln.pen 06/05/20 Insulin Lispro [Humalog KwikPen] See Protocol SC ACHS #0 insuln.pen 06/05/20 [place], Insulin Disposable [Novofine Autocover 30G Needle] 1 each MISCELL. UD #1 box 06/05/20 The patient was counseled on the following discharge medications and changes in medications for homegoing were reviewed. The Reason for Use, instructions for use, and potential side effects were reviewed for all new medications. The patient's questions regarding all of their medications were answered. The patient was able to verbally demonstrate an understanding of their discharge medications.
== END 2020-06-05 12:38 | disposition home or self-care (01) | DRG 637 ==
LOC: ED 12:02 → ICU 12:26 → PCU 06-04 13:30
PROVIDERS: Admitting Provider Internal Medicine; Emergency Provider Emergency Medicine; Visit Provider Internal Medicine
DX: E11.10 Type 2 diabetes mellitus with ketoacidosis without coma (principal); E43 Unspecified severe protein-calorie malnutrition; N17.9 Acute kidney failure, unspecified; Z68.1 Body mass index [BMI] 19.9 or less, adult; E83.42 Hypomagnesemia; E87.6 Hypokalemia; Z86.19 Personal history of other infectious and parasitic diseases
CPT/HCPCS: 80048; 80053; 80076; 81001; 82009; 82962; 83036; 83735; 85025; 93005; 97802; 97803; 99285; J7030; J7050; A4216; J7799